=== PATIENT | female | born 1980 | race Caucasian/White ===

== ENCOUNTER 2024-01-11 07:37 | Emergency (ER) | payer MEDICAID ==
[~2024-01-11] VITALS: Ht 157.5 cm; Wt 55.0 kg
[2024-01-11 07:48] VITALS: BP 149/94; TEMP 97.9; O2SAT 99
[2024-01-11] MEDS: LORAZEPAM 0.5MG TABLET PO ONE (09:25)
[2024-01-11 09:39] LABS: BASOPHILS % 0.6 % (0.0-2.0); EOSINOPHILS % 0.3 % (0.0-5.0); HEMATOCRIT. 38.8 % (36.0-48.0); LYMPHOCYTES % 10.9 % (20.0-50.0); MEAN CORPUSCULAR HEMOGLOBIN 28.6 pg (28.0-32.0); MEAN CORPUSCULAR HGB CONC 33.4 g/dL (31.0-37.0); MEAN CORPUSCULAR VOLUME 85.7 fL (81.0-99.0); NEUTROPHILS % 80.2 % (40.0-76.0); PLATELET 370 x1000/uL (130-400); RED BLOOD CELL COUNT 4.53 mill/uL (4.2-5.4); RED CELL DISTRIBUTION WIDTH 14.8 % (11.6-14.6); WHITE BLOOD COUNT 11.4 x1000/uL (4.5-11.0)
[2024-01-11 09:40] LABS: CHLORIDE 103 mEq/L (98-107); POTASSIUM 3.5 mEq/L (3.5-5.1); SODIUM 136 mEq/L (136-145)
[2024-01-11 09:41] LABS: CALCIUM 9.1 mg/dL (8.7-10.4); CARBON DIOXIDE 26 mEq/L (21-32)
[2024-01-11 09:46] LABS: CREATININE 0.6 mg/dL (0.6-1.0); GLUCOSE 112 mg/dL (70-105); HCG SCREEN NEGATIVE; UREA NITROGEN BLOOD 7 mg/dL (9-23)
[2024-01-11 09:55] LABS: ETHANOL BLOOD < 10 mg/dL (<10); TROPONIN I HIGH SENSITIVITY < 4 ng/L (3.0-34)
[2024-01-11 10:32] LABS: *AMPHETAMINES SCREEN URINE NEGATIVE (NEGATIVE)
[2024-01-11 10:33] LABS: *BARBITURATES SCREEN URINE NEGATIVE (NEGATIVE); *BENZODIAZEPINES SCREEN URINE NEGATIVE (NEGATIVE); *COCAINE SCREEN URINE NEGATIVE (NEGATIVE); CANNABINOID URINE SCREEN NEGATIVE (NEGATIVE); ECSTASY MDMA SCREEN URINE NEGATIVE (NEGATIVE); METHADONE URINE SCREEN NEGATIVE (NEGATIVE); OPIATES URINE SCREEN NEGATIVE (NEGATIVE); PHENCYCLIDINE URINE SCREEN NEGATIVE (NEGATIVE)
[2024-01-11] MEDS ORDERED: ALBU6.7H15 INH (11:18)
[2024-01-11] MEDS ORDERED: BENZ100C86 MT (11:18)
[2024-01-11] MEDS ORDERED: AZIT250T12 MT (11:18)
[2024-01-11 11:50] VITALS: PULSE 92; RESP 18
== END 2024-01-11 11:52 | disposition home or self-care (01) ==
LOC: ER 07:58
DX: F41.9 Anxiety disorder, unspecified (principal); R06.02 Shortness of breath; J45.909 Unspecified asthma, uncomplicated
CPT/HCPCS: 36415; 71045; 80048; 80305; 80320; 83880; 84484; 84703; 85025; 85379; 93005; 99285; G0480